=== PATIENT | male | born 2000 | race American Indian/Alaskan Native ===

== ENCOUNTER 2019-02-11 21:05 | Emergency (ER) | payer MEDICAID ==
[2019-02-11 21:51] VITALS: BP 146/86
--- NOTE | 2019-02-11 22:51 | XRay Report ---
RIGHT WRIST 3 VIEWS INDICATION / CLINICAL INFORMATION: Right wrist pain and swelling. COMPARISON: None available. FINDINGS: BONES / JOINT(S): The joint spaces are well-maintained. There is no evidence of significant arthritis . I see no evidence of fracture, dislocation, destructive lesion or other abnormality. SOFT TISSUES: No significant abnormality. ADDITIONAL FINDINGS: None. IMPRESSION: No acute abnormality. Signer Name: Rufino Jaimes MD Signed: 02/11/2019 10:47 PM Workstation Name: [id number]
--- NOTE | 2019-02-12 00:42 | Emergency Department Report ---
Upper Extremity - HPI Chief Complaint: Extremity Injury, Upper Stated Complaint: RIGHT WRIST PAIN Time Seen by Provider: 02/11/19 23:34 Upper Extremity: Right Wrist, Right Hand Occurred When: 2 Days Severity: mild Symptoms: Yes Pain with Movement, Yes Swelling, No Deformity, No Limited Range of Movement, No Numbness, No Weakness, No Bruising/Ecchymosis, No Laceration or Abrasion Other History: 18-year-old male was at work lifting of boxes when he felt a pop followed by burning pain to the right hand, lateral aspect along the fifth metacarpal extending down to his wrist. Pain is worse with flexion and extension of his risk in and when making a fist. Of dictations. No elbow pain. ED Review of Systems ROS: Stated complaint: RIGHT WRIST PAIN Other details as noted in HPI Comment: All other systems reviewed and negative ED Past Medical Hx - Past Medical History Previous Medical History?: Yes Hx Asthma: Yes - Surgical History Past Surgical History?: No - Social History Smoking Status: Never Smoker Substance Use Type: None - Medications Home Medications: Home Medications Medication Instructions Recorded Confirmed Last Taken Type Albuterol Sulfate [Ventolin HFA] 2 puff IH Q4H PRN #1 hfa.aer.ad 02/26/14 Unknown Rx predniSONE [Deltasone] 20 mg PO TID #15 tab 02/26/14 Unknown Rx Ketorolac [Toradol] 10 mg PO Q6H PRN #15 tablet 02/12/19 Unknown Rx Upper Extremity Exam - Exam General: Vital signs noted. No distress. Alert and acting appropriately. Head and Torso: No HEENT Abnormality, No Neck Tenderness, No Chest/Lungs Abnormality, No Abdominal Tenderness, No Back Tenderness Shoulder Exam: Yes Normal Range of Motion in Shoulder, No Shoulder Tenderness, No Clavicle Tenderness, No Shoulder Deformity, No AC Joint Tenderness Arm Exam: No Arm/Humerus Tenderness, No Arm Deformity Elbow: No Elbow Tenderness, No Normal Range of Motion in Elbow, No Elbow Deformity Forearm: No Forearm Tenderness, No Forearm Deformity, No Pain with Pronation, No Pain with Supination Wrist: Yes Wrist Tenderness, Yes Normal ROM in Wrist, No Wrist Deformity, No Snuffbox Tenderness, No Pain with Axial Thumb Compression Hand: Yes Hand Tenderness, Yes Normal ROM in Digit(s), No Hand Deformity, No Digit Tenderness, No Digit(s) Deformity, No Tendon Dysfunction CMS Exam: Yes Normal Distal Pulses, Yes Normal Capillary Refill, Yes Normal Distal Sensation, No Broken Skin Hand L/R Back: 1 - Area of tenderness noted here. No swelling. Full range of motion is noted of the fourth and fifth phalanges. Pulses 2+. Capillary refills are brisk. There is no broken skin. No tenderness to the high for thenar region or the thenar eminence. ED Course Vital Signs 02/11/19 21:48 Temperature 98.3 F Pulse Rate 61 Respiratory 16 Rate Blood Pressure 146/86 O2 Sat by Pulse 99 Oximetry ED Medical Decision Making - Medical Decision Making 18-year-old -[place] male was lifting of boxes when he felt a pop sensation to his hand followed by Bernson pain radiating from his wrist to his fifth metacarpal and fifth phalanges. Reports no prior trauma. X-ray shows no evidence of fracture process of soft tissue damage in the form of a tendinopathy traumatic in nature. Critical care attestation.: If time is entered above; I have spent that time in minutes in the direct care of this critically ill patient, excluding procedure time. ED Disposition Clinical Impression: Right hand tendonitis Disposition: - TO HOME OR SELFCARE Is pt being admited?: No Does the pt Need Aspirin: No Condition: Stable Referrals: PRIMARY CARE, [Primary Care Provider] - 3-5 Days [facility] [Provider Group] - 3-5 Days
== END 2019-02-12 01:10 | disposition home or self-care (01) ==
LOC: ED 21:05
DX: M77.9 Enthesopathy, unspecified (principal); M25.531 Pain in right wrist; J45.909 Unspecified asthma, uncomplicated; Z79.899 Other long term (current) drug therapy; X50.0XXA Overexertion from strenuous movement or load, initial encounter; Y93.89 Activity, other specified; Y92.69 Other specified industrial and construction area as the place of occurrence of the external cause; Y99.8 Other external cause status

== ENCOUNTER 2021-09-25 03:37 | Emergency (ER) | payer MEDICAID ==
--- NOTE | 2021-09-25 06:19 | Emergency Department Report ---
ED General Adult HPI - General Chief complaint: Altered Mental Status Stated complaint: ETOH Time Seen by Provider: 09/25/21 06:05 Source: EMS ( EMS documentation not available at time of chart dictation ), RN notes reviewed, old records reviewed Mode of arrival: Stretcher Limitations: Altered Mental Status - History of Present Illness Initial comments: The patient is a 20-year-old gentleman with a body mass index of 36.1, who presents to the ER with acute alteration in mental status. As per nursing documentation, "patient brought in via EMS due to altered mental status due to eating an edible tonight." The patient is sleepy. He does move 4 extremities in response to stimulation. He is not accompanied by friends or family at this time at the bedside. Nursing team called out family, and obtained the following history: "Spoke with patient grandmother. Grandmother stated that patient and girlfriend had went out and came back home. At that time patient and his girlfriend went into patients bedroom. Approximately 2 hours later, the girlfriend called 911, stating that patient started swelling up and vomiting. Grandmother stated that patients girlfriend stated that patient had ingested a edible containing THC. Informed grandmother that we would evaluate and treat patient and notify her of anything. " Patient still sleepy at this time not able to describe the qualitative nature of symptoms, exacerbating factors relieving factors or aggravating factors. -: unknown Severity scale (0 -10): 0 - Related Data Previous Rx's Medication Instructions Recorded Last Taken Type Albuterol Sulfate [Ventolin HFA] 2 puff IH Q4H PRN #1 hfa.aer.ad 02/26/14 Unknown Rx predniSONE [Deltasone] 20 mg PO TID #15 tab 02/26/14 Unknown Rx Ketorolac [Toradol] 10 mg PO Q6H PRN #15 tablet 02/12/19 Unknown Rx Allergies Allergy/AdvReac Type Severity Reaction Status Date / Time No Known Allergies Allergy Verified 09/25/21 10:30 ED Review of Systems ROS: Stated complaint: ETOH Other details as noted in HPI Comment: Unobtainable due to pts medical conditions ED Past Medical Hx - Past Medical History Hx Asthma: Yes - Social History Smoking Status: Never Smoker Substance Use Type: None - Medications Home Medications: Home Medications Medication Instructions Recorded Confirmed Last Taken Type Albuterol Sulfate [Ventolin HFA] 2 puff IH Q4H PRN #1 hfa.aer.ad 02/26/14 09/25/21 Unknown Rx predniSONE [Deltasone] 20 mg PO TID #15 tab 02/26/14 09/25/21 Unknown Rx Ketorolac [Toradol] 10 mg PO Q6H PRN #15 tablet 02/12/19 09/25/21 Unknown Rx ED Physical Exam - General Limitations: Altered Mental Status General appearance: appears intoxicated, lethargic - Head Head exam: Present: atraumatic, normocephalic - Eye Eye exam: Present: normal appearance, PERRL, EOMI, other (Pupils are dilated and react to light) - ENT ENT exam: Present: normal exam, normal orophraynx, mucous membranes moist, normal external ear exam, other (Patient has emesis noted in the oropharynx) - Neck Neck exam: Present: normal inspection. Absent: tenderness, meningismus - Respiratory Respiratory exam: Present: decreased breath sounds. Absent: respiratory distress, wheezes, rales, rhonchi, stridor - Cardiovascular Cardiovascular Exam: Present: normal rhythm, bradycardia, normal heart sounds. Absent: tachycardia, irregular rhythm, systolic murmur, diastolic murmur, rubs, gallop - GI/Abdominal GI/Abdominal exam: Present: soft. Absent: distended, tenderness, guarding, rigid, pulsatile mass - Rectal Rectal exam: Present: deferred - Extremities Exam Extremities exam: Present: normal inspection, normal capillary refill, other (2+ pulses noted in the bilateral upper and lower extremities. There is no palpable cord. negative Homans sign. Muscular compartments are soft. The pelvis is stable.). Absent: pedal edema, calf tenderness - Back Exam Back exam: Present: normal inspection. Absent: tenderness, CVA tenderness (R), CVA tenderness (L), paraspinal tenderness, vertebral tenderness - Neurological Exam Neurological exam: Present: altered, reflexes normal, other (The patient is sleepy but arousable. The patient moves 4 extremities spontaneously.) - Skin Skin exam: Present: warm, dry, intact, normal color. Absent: rash ED Course Vital Signs 09/25/21 09/25/21 09/25/21 05:04 06:16 06:18 Temperature 98.9 F 97.9 F Pulse Rate 56 L 55 L Respiratory 15 18 19 Rate Blood Pressure Blood Pressure 115/64 109/60 [Right] O2 Sat by Pulse 96 100 100 Oximetry 09/25/21 09/25/21 09/25/21 06:36 06:37 06:45 Temperature 98.8 F Pulse Rate 52 L Respiratory 17 Rate Blood Pressure 107/52 Blood Pressure 115/69 [Right] O2 Sat by Pulse 100 100 100 Oximetry 09/25/21 09/25/21 09/25/21 07:01 07:17 07:31 Temperature Pulse Rate Respiratory Rate Blood Pressure 105/62 105/62 124/77 Blood Pressure [Right] O2 Sat by Pulse 100 100 100 Oximetry 09/25/21 09/25/21 09/25/21 07:45 08:01 08:15 Temperature Pulse Rate Respiratory Rate Blood Pressure 123/78 130/79 128/70 Blood Pressure [Right] O2 Sat by Pulse 100 100 100 Oximetry 09/25/21 09/25/21 08:31 11:26 Temperature 98.9 F Pulse Rate 88 Respiratory 18 Rate Blood Pressure 132/76 Blood Pressure 127/89 [Right] O2 Sat by Pulse 100 20 L Oximetry - Reevaluation(s) Reevaluation #1: 09/25/21 07:22 Differential diagnosis, include but not limited to: Toxic encephalopathy, metabolic encephalopathy, pneumonia, intracranial lesion, electrolyte derangement Assessment and plan: 20-year-old gentleman, presenting with acute encephalopathy, likely secondary to intoxication. Place patient on vehicle monitor technician. Obtain appropriate laboratory studies. Obtain x-ray the chest given history of nausea and vomiting and obvious emesis on anterior abdominal wall, as well as oropharynx, obtain noncontrast CT scan of the brain, appropriate laboratory studies and EKG. Reassess. Of note, patient does seem to be a little bit more arousable, but he is not sober at this time. 09/25/21 07:26 09/25/21 10:49 The patient is seen and reexamined. He is now awake, alert, oriented, sober and of sound mind. He endorses recreational marijuana consumption. He denies homicidality and suicidality. He denies physical pain. He is awake, alert, oriented, and denies all complaints at this time and endorses readiness for discharge. He is clinically sober, and his physical exam is benign and unremarkable. Patient advised to discontinue consumption of recreational drugs. Return precautions reviewed. All questions answered. Ambulatory with a steady gait. Reevaluation #2: 09/25/21 10:50 The patient specifically denies coingestions, and intent for self-harm. He also denies trauma. ED Medical Decision Making - Lab Data Result diagrams: 09/25/21 07:36 09/25/21 07:36 Vital Signs 09/25/21 09/25/21 09/25/21 05:04 06:16 06:18 Temperature 98.9 F 97.9 F Pulse Rate 56 L 55 L Respiratory 15 18 19 Rate Blood Pressure Blood Pressure 115/64 109/60 [Right] O2 Sat by Pulse 96 100 100 Oximetry 09/25/21 09/25/21 09/25/21 06:36 06:37 06:45 Temperature 98.8 F Pulse Rate 52 L Respiratory 17 Rate Blood Pressure 107/52 Blood Pressure 115/69 [Right] O2 Sat by Pulse 100 100 100 Oximetry Lab Results 09/25/21 09/25/21 09/25/21 Range/Units 06:33 07:36 07:36 WBC (4.5-11.0) K/mm3 RBC (3.65-5.03) M/mm3 Hgb (11.8-15.2) gm/dl Hct (35.5-45.6) % MCV (84-94) fl MCH (28-32) pg MCHC (32-34) % RDW (13.2-15.2) % Plt Count (140-440) K/mm3 PT 14.1 (12.2-14.9) Sec. INR 0.98 (0.87-1.13) Sodium 140 (137-145) mmol/L Potassium 4.4 (3.6-5.0) mmol/L Chloride 104.1 (98-107) mmol/L Carbon Dioxide 25 (22-30) mmol/L Anion Gap 15 mmol/L BUN 13 (9-20) mg/dL Creatinine 0.8 (0.8-1.3) mg/dL Estimated GFR > 60 ml/min BUN/Creatinine Ratio 16 % Glucose 109 H (75-100) mg/dL POC Glucose 112 H (70-105) mg/dL Calcium 9.3 (8.4-10.2) mg/dL Total Bilirubin 0.40 (0.1-1.2) mg/dL AST 22 (5-40) units/L ALT 23 (7-56) units/L Alkaline Phosphatase 63 (35-129) units/L Ammonia (25-60) umol/L Total Creatine Kinase (55-170) units/L Total Protein 7.8 (6.3-8.2) g/dL Albumin 4.5 (3.9-5) g/dL Albumin/Globulin Ratio 1.4 % TSH (0.270-4.200) mlU/mL Salicylates (2.8-20.0) mg/dL Acetaminophen (10.0-30.0) ug/mL Plasma/Serum Alcohol (0-0.07) % 09/25/21 09/25/21 09/25/21 Range/Units 07:36 07:36 07:36 WBC 10.3 (4.5-11.0) K/mm3 RBC 4.85 (3.65-5.03) M/mm3 Hgb 13.3 (11.8-15.2) gm/dl Hct 41.4 (35.5-45.6) % MCV 85 (84-94) fl MCH 27 L (28-32) pg MCHC 32 (32-34) % RDW 15.3 H (13.2-15.2) % Plt Count 381 (140-440) K/mm3 PT (12.2-14.9) Sec. INR (0.87-1.13) Sodium (137-145) mmol/L Potassium (3.6-5.0) mmol/L Chloride (98-107) mmol/L Carbon Dioxide (22-30) mmol/L Anion Gap mmol/L BUN (9-20) mg/dL Creatinine (0.8-1.3) mg/dL Estimated GFR ml/min BUN/Creatinine Ratio % Glucose (75-100) mg/dL POC Glucose (70-105) mg/dL Calcium (8.4-10.2) mg/dL Total Bilirubin (0.1-1.2) mg/dL AST (5-40) units/L ALT (7-56) units/L Alkaline Phosphatase (35-129) units/L Ammonia 15.0 L (25-60) umol/L Total Creatine Kinase (55-170) units/L Total Protein (6.3-8.2) g/dL Albumin (3.9-5) g/dL Albumin/Globulin Ratio % TSH (0.270-4.200) mlU/mL Salicylates (2.8-20.0) mg/dL Acetaminophen (10.0-30.0) ug/mL Plasma/Serum Alcohol < 0.01 (0-0.07) % 09/25/21 09/25/21 09/25/21 Range/Units 07:36 07:36 07:36 WBC (4.5-11.0) K/mm3 RBC (3.65-5.03) M/mm3 Hgb (11.8-15.2) gm/dl Hct (35.5-45.6) % MCV (84-94) fl MCH (28-32) pg MCHC (32-34) % RDW (13.2-15.2) % Plt Count (140-440) K/mm3 PT (12.2-14.9) Sec. INR (0.87-1.13) Sodium (137-145) mmol/L Potassium (3.6-5.0) mmol/L Chloride (98-107) mmol/L Carbon Dioxide (22-30) mmol/L Anion Gap mmol/L BUN (9-20) mg/dL Creatinine (0.8-1.3) mg/dL Estimated GFR ml/min BUN/Creatinine Ratio % Glucose (75-100) mg/dL POC Glucose (70-105) mg/dL Calcium (8.4-10.2) mg/dL Total Bilirubin (0.1-1.2) mg/dL AST (5-40) units/L ALT (7-56) units/L Alkaline Phosphatase (35-129) units/L Ammonia (25-60) umol/L Total Creatine Kinase 467 H (55-170) units/L Total Protein (6.3-8.2) g/dL Albumin (3.9-5) g/dL Albumin/Globulin Ratio % TSH 0.717 (0.270-4.200) mlU/mL Salicylates < 0.3 L (2.8-20.0) mg/dL Acetaminophen (10.0-30.0) ug/mL Plasma/Serum Alcohol (0-0.07) % 09/25/21 Range/Units 07:36 WBC (4.5-11.0) K/mm3 RBC (3.65-5.03) M/mm3 Hgb (11.8-15.2) gm/dl Hct (35.5-45.6) % MCV (84-94) fl MCH (28-32) pg MCHC (32-34) % RDW (13.2-15.2) % Plt Count (140-440) K/mm3 PT (12.2-14.9) Sec. INR (0.87-1.13) Sodium (137-145) mmol/L Potassium (3.6-5.0) mmol/L Chloride (98-107) mmol/L Carbon Dioxide (22-30) mmol/L Anion Gap mmol/L BUN (9-20) mg/dL Creatinine (0.8-1.3) mg/dL Estimated GFR ml/min BUN/Creatinine Ratio % Glucose (75-100) mg/dL POC Glucose (70-105) mg/dL Calcium (8.4-10.2) mg/dL Total Bilirubin (0.1-1.2) mg/dL AST (5-40) units/L ALT (7-56) units/L Alkaline Phosphatase (35-129) units/L Ammonia (25-60) umol/L Total Creatine Kinase (55-170) units/L Total Protein (6.3-8.2) g/dL Albumin (3.9-5) g/dL Albumin/Globulin Ratio % TSH (0.270-4.200) mlU/mL Salicylates (2.8-20.0) mg/dL Acetaminophen 5.0 L (10.0-30.0) ug/mL Plasma/Serum Alcohol (0-0.07) % - EKG Data -: EKG Interpreted by Me Rate: bradycardia - EKG Data 09/25/21 07:21 The EKG is interpreted at 06: 25 Bradycardia, sinus, 50 bpm. Normal axis, normal P wave axis, normal intervals. This is not a STEMI - Radiology Data Radiology results: pending, report reviewed, image reviewed interpreted by me: 1 view x-ray of the chest, interpreted by myself, clear lungs, no infiltrate, no pneumothorax, poor respiratory effort Addendum: I have reviewed the CT scan at the request of Dr. Granados. Streaky artifacts predominantly in the left middle cranial fossa and to a lesser degree left hemicranium obscures the details. There is no mass effect over the left middle cerebral artery cistern. I am unable to confirm a mass lesion along left middle cranial fossa floor. Findings described in the initial CT report appears to be due to streaky artifacts. No adjacent skull fracture seen. Signer Name: Marian Marrero MD Signed: 09/25/2021 7:34 AM Workstation Name: [id number] CT HEAD WITHOUT CONTRAST INDICATION / CLINICAL INFORMATION: Altered Mental Status. TECHNIQUE: CT head was performed without administration of intravenous contrast. All CT scans at this location are performed using CT dose reduction for ALARA by means of automated exposure control. COMPARISON: None available. FINDINGS: CEREBRAL PARENCHYMA: Significant streak artifact is present. Along the lateral margin of the left middle cranial fossa, an elliptical focus of increased attenuation is present possibly reflective of artifact. Extra-axial lesion not excluded. This measures 1.1 cm in thickness. HEMORRHAGE: None. EXTRA-AXIAL SPACES: Normal in size and morphology for the patient's age. VENTRICULAR SYSTEM: Normal in size and morphology for the patient's age. MIDLINE SHIFT / HERNIATION: None. CEREBELLUM / BRAINSTEM: No significant abnormality. ORBITS: No significant abnormality. SOFT TISSUES: No significant abnormality. SKULL: No significant abnormality. PARANASAL SINUSES / MASTOID AIR CELLS: Normal as visualized. ADDITIONAL FINDINGS: None. IMPRESSION: 1. Possible hyperdense extra-axial lesion within the left middle cranial fossa. Significant artifact is present degrading the study. Otherwise no acute intracranial pathology. MRI brain is recommended for further characterization. Signer Name: Brayden Fontenot II, MD Signed: 09/25/2021 6:31 AM Workstation Name: [id number] Critical care attestation.: If time is entered above; I have spent that time in minutes in the direct care of this critically ill patient, excluding procedure time. ED Disposition Clinical Impression: Marijuana use, Transient alteration of awareness Disposition: 01 HOME / SELF CARE / HOMELESS Is pt being admited?: No Does the pt Need Aspirin: No Condition: Good Instructions: Cannabis Use Disorder, Toxic Metabolic Encephalopathy Additional Instructions: I recommend that the patient not drive or operate motor vehicles until cleared to do so by a primary care doctor. We also recommend that the patient not consume marijuana, edible drugs, tobacco, smoke products, or alcohol. Patient should have his primary care doctor contact the medical records department today, and follow-up on nonemergent incidental abnormal findings on CT scan, and x-ray of the chest. Laboratory findings and CT scan of the brain were obtained today, in addition to x-ray the chest, which did not demonstrate any acutely emergent or abnormal findings. Incidental abnormality should be followed up routinely by an outpatient primary care provider Your primary care doctor should also follow-up on your laboratory studies which did not demonstrate any acute or emergent abnormalities. We do recommend follow-up with a primary care doctor within the next week. Please return to the emergency room right away with new pain, worsened pain, migration of pain, projectile vomiting, change in mental status, confusion, inability tolerate liquid feeds, new, worsened or different symptoms not present on the initial emergency room evaluation Referrals: [facility] [Provider Group] - 3-5 Days Forms: Work/School Release Form(ED)
--- NOTE | 2021-09-25 07:36 | Cat Scan Report ---
CT HEAD WITHOUT CONTRAST INDICATION / CLINICAL INFORMATION: Altered Mental Status. TECHNIQUE: CT head was performed without administration of intravenous contrast. All CT scans at this location are performed using CT dose reduction for ALARA by means of automated exposure control. COMPARISON: None available. FINDINGS: CEREBRAL PARENCHYMA: Significant streak artifact is present. Along the lateral margin of the left mid dle cranial fossa, an elliptical focus of increased attenuation is present possibly reflective of art ifact. Extra-axial lesion not excluded. This measures 1.1 cm in thickness. HEMORRHAGE: None. EXTRA-AXIAL SPACES: Normal in size and morphology for the patient's age. VENTRICULAR SYSTEM: Normal in size and morphology for the patient's age. MIDLINE SHIFT / HERNIATION: None. CEREBELLUM / BRAINSTEM: No significant abnormality. ORBITS: No significant abnormality. SOFT TISSUES: No significant abnormality. SKULL: No significant abnormality. PARANASAL SINUSES / MASTOID AIR CELLS: Normal as visualized. ADDITIONAL FINDINGS: None. IMPRESSION: 1. Possible hyperdense extra-axial lesion within the left middle cranial fossa. Significant artifact is present degrading the study. Otherwise no acute intracranial pathology. MRI brain is recommended f or further characterization. Signer Name: Brayden Fontenot II, MD Signed: 09/25/2021 7:31 AM Workstation Name: [id number]
[2021-09-25 07:56] LABS: Hematocrit 41.4 % (35.5-45.6); Hemoglobin 13.3 gm/dl (11.8-15.2); Mean Corpuscular HGB Conc 32 % (32-34); Mean Corpuscular Volume 85 fl (84-94); Platelet Count 381 K/mm3 (140-440); Red Blood Count 4.85 M/mm3 (3.65-5.03); Red Cell Distribution Width 15.3 % (13.2-15.2)
[2021-09-25 08:11] LABS: INR 0.98 (0.87-1.13)
[2021-09-25 08:44] LABS: Alanine Aminotransferase 23 units/L (7-56); Albumin 4.5 g/dL (3.9-5); BUN/Creatinine Ratio 16; Blood Urea Nitrogen 13 mg/dL (9-20); Calcium 9.3 mg/dL (8.4-10.2); Hemolysis Index 9
[2021-09-25] MEDS: ONDANSETRON 4 MG/2 ML INJ IV ONE (10:31)
--- NOTE | 2021-09-25 10:53 | XRay Report ---
CHEST 1 VIEW INDICATION: Altered Mental Status. COMPARISON: None FINDINGS: Support devices: None. Heart: Within normal limits. Lungs/Pleura: There is poor inspiration. The lungs are grossly clear. No evidence for pleural effusio n or pneumothorax. Additional findings: None. IMPRESSION: No acute findings. Signer Name: Sheng Murphy Jr, MD Signed: 09/25/2021 10:49 AM Workstation Name: [id number]
[2021-09-25 11:26] VITALS: BP 127/89
--- NOTE | 2021-09-27 12:01 | Electrocardiograph Report ---
[facility] Test Date: 2021-09-25 Test Time: 06:25:04 Pat Name: NIK SKELTON Department: Room: Gender: M Congressional Assistant: AIMEE : 2000 Requested By: GILDARDO LUNA Order Number: [id number] Reading MD: Leif Singleton Measurements Intervals [place] Rate: 50 P: -15 OR: 166 QRS: 21 QRSD: 104 T: 9 QT: 433 QTc: 395 Interpretive Statements Sinus bradycardia No previous ECG available for comparison Electronically Signed On 09-27-2021 12:00:57 EDT by Leif Singleton
== END 2021-09-25 11:26 | disposition home or self-care (01) ==
LOC: ED 03:37
DX: F12.90 Cannabis use, unspecified, uncomplicated (principal); R40.4 Transient alteration of awareness; R79.1 Abnormal coagulation profile; J45.909 Unspecified asthma, uncomplicated; Z79.899 Other long term (current) drug therapy
CPT/HCPCS: 36415; 70450; 71045; 80053; 80320; 82140; 82550; 82962; 84443; 85027; 85610; 93005; 99285; G0480